=== PATIENT | female | born 1955 | race African-American/Black ===

== ENCOUNTER 2019-08-28 22:57 | Inpatient (IN) ==
[2019-08-28 23:30] LABS: Albumin Level 3.4 gm/dl (3.4-5.0); BUN Creatinine Ratio 12.5 (10-20); Calcium 8.9 mg/dl (8.5-10.1); Creatinine Clr Calc Pharmacy 43.3 ml/min; Est GFR (African American) 67.5; Est GFR (Non-African American) 58.2; Potassium 3.5 mmol/L (3.5-5.1)
[2019-08-28 23:33] LABS: INR 1.1 (0.9-1.1); Partial Thromboplastin Time 26.5 Seconds (21.0-31.0)
[2019-08-28 23:35] LABS: Albumin Globulin Ratio 0.8 (0.9-2); Bilirubin,Total 0.9 mg/dl (0.2-1); Globulin 4.2 gm/dl (2.5-4.0); Total Protein 7.6 gm/dl (6.4-8.2); Troponin I 0.03 ng/ml (0-0.045)
[2019-08-28 23:49] LABS: Hematocrit (blood only) 30.6 % (37-47); Hemoglobin 10.4 g/dL (12.0-16.0); Mean Corpuscular Hemoglobin 29.7 pg (25-34); Mean Corpuscular Volume 87.4 fL (80-100); Mean Platelet Volume 9.8 fL (7.4-10.4); Platelet Count 59 K/uL (130-400); RDW Coefficient of Variation 16.8 % (11.5-14.5); RDW Standard Deviation 53.9 fL (36.4-46.3); White Blood Count 8.81 K/uL (4.8-10.8)
[2019-08-28 23:50] LABS: Basophils # (auto) 0.03 K/uL (0-0.2); Basophils % (auto) 0.3 %; Eosinophils # (auto) 0.22 K/uL (0-0.5); Eosinophils % (auto) 2.5 %; Immature Granulocytes # (auto) 0.03 K/uL (0.00-0.02); Immature Granulocytes % (auto) 0.3 %; Lymphocytes # (auto) 3.31 K/uL (1.2-3.4); Lymphocytes % (auto) 37.6 %; Monocytes # (auto) 0.62 K/uL (0.11-0.59); Neutrophils % (auto) 52.3 %; Platelet Estimate Decreased (Normal); Schistocytes 1+
--- NOTE | 2019-08-29 01:47 | History & Physical Report ---
Date of Service August 29, 2019 Assessment & Plan (1) Dysarthria: Ms. Mason is a 63 year old female with no significant past medical history who presents to [facility] due to an episode of dysarthria, left sided hand weakness and left sided facial droop. Dysarthria/Numbness of left hand/Facial droop -admit to telemetry -transient, lasting approximately 5 minutes. Symptoms resolved prior to presentation to ED and neurological examination is currently WNL -Concern for TIA -MRI head and MRA head and neck ordered, ECHO ordered -FLP and HbA1c ordered with AM labs -neurology consulted -will not start aspirin at this time due to thrombocytopenia Elevated troponin -trop 0.03 - patient w/out chest pain -EKG shows normal sinus rhythm with T wave inversions in lateral leads - no prior EKG to compare -will trend troponin q6h -ECHO as above Thrombocytopenia -platelets 59, no signs or symptoms of bleeding -pt states she has never been told she had low platelets before -no recent illnesses, no hx of liver disease, not on any medications -will order peripheral smear, B12 and folate to continue workup, ?ITP -heme/onc consult requested Anemia -Hgb 10.4, normal MCV -pt states she has always had a hx of anemia -iron studies, Vitamin B12 and folate ordered Code status: FULL DVT Prophylaxis: SCDs Disposition: admit to telemetry (2) Numbness of left hand: (3) Facial droop: (4) Thrombocytopenia: (5) Elevated troponin: History of Present Illness Chief Complaint: Dysarthria, left sided facial droop, left sided weakness Primary Care Provider: NO PCP Ms. Mason is a 63 year old female with no significant past medical history who presents to [facility] due to an episode of dysarthria, left sided hand weakness and left sided facial droop. She states she was taking her teeth out earlier this evening, and felt like the left side of her mouth was drooping. She called her daughter over to have a look and states that she felt her speech was slurred when she was speaking to her daughter. She also endorses left hand numbness, and states it felt like her left hand was stiff. She denies changes with vision, weakness in her left leg, trouble with gait, or difficulty understanding her daughter. She states this episode lasted for approximately 5 minutes, and then resolved spontaneously. She states this has never happened to her before. She has otherwise been well, no recent illnesses. No hx of stroke, TIA, MS. She does not yet have a PCP in [place]. PMHx: Has been told in the past that she was anemic PSHx: nil of note Medications: none Allergies: NKDA FHx: Grandfather w/stroke. SHx: Just moved to [place] from [place], as her daughter got a job teaching [place] at [employer]. Smokes marijuana, 2/day. No alcohol. Allergies Allergy/AdvReac Type Severity Reaction Status Date / Time No Known Drug Allergies Allergy Unknown Verified 08/28/19 23:32 Home Medications Home Medications Medication Instructions Recorded Confirmed Type No Known Home Medications 07/25/19 08/28/19 History Past Med/Surg History Surgical History History of surgery procedure on cervix-1983 Family History Other No family history of bleeding disorder Social History Preferred Language: [place] Beliefs That Will Affect Care: None Current Living Situation: Other Current Living Situation Comment: With Daughter current occupational status: retired Other Information That Helps Us Care for You: No Feels Safe at Home: Yes Safety Concerns: Feels Safe At This Time Smoking Status: Current every day smoker Tobacco Type: cigarettes ; Cigarettes Per Day: 4 ; Do You Dip or Chew Tobacco: No ; Second Hand Exposure: No ; Tobacco Cessation Education Requested by Patient: No Hx Alcohol Use: Yes Hx Substance Use: Yes substance use type: marijuana Last Used Substance: Unknown Review of Systems Constitutional: no fever, no chills and no fatigue Eyes: no diplopia, no spots in vision and no tunnel vision Respiratory: no cough and no dyspnea Cardiovascular: no chest pain, no palpitations, no lightheadedness, no syncope, no edema and no calf pain Gastrointestinal: no abdominal pain, no nausea, no vomiting and no change in bowel habits Genitourinary: no dysuria, no difficulty urinating and no urinary frequency Musculoskeletal: no back pain Neurologic: + loss of sensation and + abnormal speech; no gait abnormality, no falls, no dizziness, no syncope, no headache(s) and no confusion Physical Exam Constitutional: WD/WN, vitals as above + thin; no acute distress Eyes: PERRL, conjunctivae normal, anicteric sclerae ENMT: external ear and nose normal, oropharynx normal Respiratory: normal respiratory effort, lungs clear to auscultation Cardiovascular: RRR, no murmur, no edema Gastrointestinal (Abdomen): normal bowel sounds, soft, nontender, no hepatosplenomegaly Musculoskeletal: no cyanosis or clubbing, extremities motor strength 5/5 Skin: no rashes, warm and dry Neurologic: patellar DTR's 2+ bilat, sensation intact and PERRL, EOMI, accommodation nl, no face palsy, no dysarthria no focal motor deficits Cranial nerves 2-12 grossly intact Coordination intact Power 5/5 in UE and LE Psychiatric: A+Ox3, euthymic affect Results & Data Vital Signs (Past 12 Hours) Vital Signs Temp Pulse Resp BP Pulse Ox 08/29/19 01:06 63 15 121/75 100 08/29/19 01:00 68 18 100 08/29/19 00:30 60 18 99 08/29/19 00:00 68 16 117/64 99 08/28/19 23:30 65 22 115/74 99 08/28/19 23:05 37 C 69 12 123/79 100 08/28/19 23:04 70 24 100 08/28/19 23:01 66 16 123/79 100 Supervising Physician Co-Signing Physician Notes Patient was seen and examined by me personally. I reviewed the chart, the orders and discussed the case in detail with Dr. Shaina Rowan MD . I read this H&P and agree with its contents to entirety. Resident Activity Tracking Resident Involvement: Resident Care Provided Care Provided: Adult [facility] Medicine
[2019-08-29] MEDS ORDERED: ALUMINUM/MAGNESIUM SUSP 30 ML UDC PO PRN (02:54)
[2019-08-29] MEDS ORDERED: MAGNESIUM HYDROXIDE SUSP 30 ML UDC PO PRN (02:54)
[2019-08-29] MEDS ORDERED: ONDANSETRON INJ 2 MG/ML 2 ML VIAL IV PRN (02:54)
[2019-08-29] MEDS ORDERED: ACETAMINOPHEN 325 MG TAB PO PRN (02:54)
[2019-08-29] MEDS ORDERED: PHARMACIST DISCHARGE MED REC CONSULT PRN (02:54)
[2019-08-29] MEDS ORDERED: GADOBUTROL 65ML VIAL IV PRN (06:02)
--- NOTE | 2019-08-29 06:19 | Emergency Department Note ---
Entered by Teresa Flannery acting as a scribe for History of Present Illness General Chief complaint: Neuro Symptoms/Deficit Stated complaint: NEURO SX Source: patient and family (daughter) History of Present Illness Provider complaint: stroke-like symptoms Onset (ago): hour(s) 1 Location: left and right Pain Consistency: + now resolved Quality: + other (stroke-like symptoms) Associated symptoms: + other (Positive slurred speech; Positive left hand immobility; Negative head trauma; Negative visual impairment; Negative head trauma); no nausea/vomiting The patient, who is a 63 year old female with no significant medical history, presents to the Emergency Room with complaints of a stroke-like episode which occurred at 2004. The patient states that while she was getting ready to sleep her daughter observed that the left side of her mouth was drooping significantly. The patient's daughter states that while she was calling EMS the patient's speech slowed down and started to slur. The patient confirms that while she was taking her dentures out the she was unable to move her left hand properly. The patient reports that this lasted a couple of seconds and she did not lose any sensation in this hand. The patient denies experiencing numbness in her legs throughout the entire episode. The patient denies vomiting, head trauma and visual impairment. The patient states that she has not seen a PCP in a while. The patient expresses that she currently smokes a couple of cigarettes a day. The patient is an inconsistent alcohol user. The patient's daughter states that the patient had an MRI three weeks ago. Home Medications Home Medications Medication Instructions Recorded Confirmed Type No Known Home Medications 07/25/19 08/28/19 History Allergies Allergy/AdvReac Type Severity Reaction Status Date / Time No Known Drug Allergies Allergy Unknown Verified 08/28/19 23:32 Past Med/Surg History Surgical History History of surgery procedure on cervix-1983 Family History Other No family history of bleeding disorder Social History Preferred Language: Urdu Communication Ability: Effective Beliefs That Will Affect Care: None Current Living Situation: Other Current Living Situation Comment: With Daughter current occupational status: retired Other Information That Helps Us Care for You: No Feels Safe at Home: Yes Safety Concerns: Feels Safe At This Time Smoking Status: Current every day smoker Tobacco Type: cigarettes ; Cigarettes Per Day: 4 ; Do You Dip or Chew Tobacco: No ; Second Hand Exposure: No ; Tobacco Cessation Education Requested by Patient: No Hx Alcohol Use: Yes Hx Substance Use: Yes substance use type: marijuana Last Used Substance: Unknown Physical Exam Vital Signs Vital Signs - 24 hr 08/29/19 00:30 08/29/19 01:00 08/29/19 01:06 Temperature Temperature Source Pulse Rate - Lying Pulse Rate 60 68 63 Pulse Rate [Right] Pulse Rate from SpO2 Sensor 60 63 64 Respiratory Rate 18 18 15 Respiratory Effort / Characteristics Respiratory Depth Respiratory Pattern Blood Pressure - Lying Blood Pressure 121/75 Blood Pressure [Left Arm] Blood Pressure Mean 90 Blood Pressure Mean [Left Arm] Blood Pressure Position [Left Arm] Pulse Oximetry 99 100 100 Oxygen Delivery Method 08/29/19 01:30 08/29/19 01:31 08/29/19 02:00 Temperature Temperature Source Pulse Rate - Lying Pulse Rate 64 63 60 Pulse Rate [Right] Pulse Rate from SpO2 Sensor 67 63 Respiratory Rate 20 20 20 Respiratory Effort / Characteristics Respiratory Depth Respiratory Pattern Blood Pressure - Lying Blood Pressure 114/69 Blood Pressure [Left Arm] Blood Pressure Mean 84 Blood Pressure Mean [Left Arm] Blood Pressure Position [Left Arm] Pulse Oximetry 100 100 Oxygen Delivery Method 08/29/19 02:01 08/29/19 02:58 08/29/19 08:07 Temperature 37.2 C 37.2 C Temperature Source Oral Oral Pulse Rate - Lying Pulse Rate Pulse Rate [Right] Pulse Rate from SpO2 Sensor Respiratory Rate 19 18 18 Respiratory Effort / Characteristics Non-Labored Spontaneous Non-Labored Respiratory Depth Normal Normal Respiratory Pattern Regular Blood Pressure - Lying Blood Pressure 116/69 Blood Pressure [Left Arm] 110/60 121/74 Blood Pressure Mean 84 Blood Pressure Mean [Left Arm] 76 89 Blood Pressure Position [Left Arm] Sitting Pulse Oximetry 100 99 100 Oxygen Delivery Method Room Air Room Air 08/29/19 08:11 08/29/19 11:47 08/29/19 14:47 Temperature 37.1 C Temperature Source Oral Pulse Rate - Lying 69 Pulse Rate Pulse Rate [Right] 64 65 Pulse Rate from SpO2 Sensor Respiratory Rate 19 Respiratory Effort / Characteristics Respiratory Depth Respiratory Pattern Blood Pressure - Lying 116/78 Blood Pressure Blood Pressure [Left Arm] 122/78 Blood Pressure Mean Blood Pressure Mean [Left Arm] 92 Blood Pressure Position [Left Arm] Sitting Pulse Oximetry 100 100 Oxygen Delivery Method Room Air 08/29/19 15:24 08/29/19 16:00 Temperature 37.3 C Temperature Source Oral Pulse Rate - Lying Pulse Rate 68 Pulse Rate [Right] 67 Pulse Rate from SpO2 Sensor Respiratory Rate 16 Respiratory Effort / Characteristics Respiratory Depth Respiratory Pattern Blood Pressure - Lying Blood Pressure Blood Pressure [Left Arm] 98/64 L Blood Pressure Mean Blood Pressure Mean [Left Arm] 75 Blood Pressure Position [Left Arm] Pulse Oximetry 100 Oxygen Delivery Method Room Air Vital signs reviewed. General: Well-appearing 63 year old female, in no significant distress. HEENT: No scleral icterus, PERRLA, neck supple. Atraumatic. Cardiovascular: Regular rate and rhythm, no extra sounds. Pulmonary: Clear to auscultation bilaterally, normal work of breathing. Abdomen: Soft, nontender, nondistended, positive bowel sounds. Musculoskeletal: Atraumatic, no peripheral edema. Neurologic: Patient awake alert and oriented x 3, full strength in all 4 extremities. Cranial nerves 2 through 12 grossly intact. Finger to nose intact. Negative pronator drift. Skin: Warm, dry, no rash Course 2304: Past medical records reviewed. The patient was evaluated in room B10. A complete history and physical exam was performed. 0103: I reviewed the patient's case with Dr. Lyons, [facility] Hospitalist. He will evaluate the patient for further management. Consultations Consultation #1: I reviewed the patient's case with Dr. Lyons, [facility] Hospitalist. He will evaluate the patient for further management. Time: 01:03 Administered Medications Gadobutrol (Gadavist 65ml) 4.8 ml IV ONCE PRN PRN Reason: Interaction Checking Stop: 09/02/19 06:01 Last Admin: 08/29/19 05:52 Dose: 4.8 ml Documented by: [id number] Sodium Chloride (Nss 1000ml) 1,000 mls @ 80 mls/hr IV .[id number] KATHRINE Stop: 09/28/19 18:29 Last Admin: 08/29/19 18:53 Dose: 80 mls/hr Documented by: [id number] Medical Decision Making Differential Diagnosis Differential Diagnosis includes but is not limited to ischemic Stroke, hemorrhagic stroke, bells palsy, mass, neoplasm, migraine headache, seizure, subarachnoid hemorrhage, TIA, and transient global amnesia. Medical Records Attestation: I reviewed the patient's medical records. Home Medications Current Medication List: was personally reviewed by me Laboratory Data Attestation: I reviewed the patient's lab results. Result diagrams: 08/29/19 06:24 08/29/19 06:24 Lab Results 08/28/19 08/28/19 08/28/19 Range/Units 23:05 23:05 23:05 WBC 8.81 (4.8-10.8) K/uL RBC 3.50 L (4.2-5.4) M/uL Hgb 10.4 L (12.0-16.0) g/dL Hct 30.6 L (37-47) % MCV 87.4 (80-100) fL MCH 29.7 (25-34) pg MCHC 34.0 (32-36) g/dL RDW Std Deviation 53.9 H (36.4-46.3) fL RDW Coeff of Stew 16.8 H (11.5-14.5) % Plt Count 59 L (130-400) K/uL MPV 9.8 (7.4-10.4) fL Immature Gran % (Auto) 0.3 % Neut % (Auto) 52.3 % Lymph % (Auto) 37.6 % [place] % (Auto) 7.0 % Eos % (Auto) 2.5 % Baso % (Auto) 0.3 % Immature Gran # (Auto) 0.03 H (0.00-0.02) K/uL Neut # (Auto) 4.60 (1.4-6.5) K/uL Lymph # (Auto) 3.31 (1.2-3.4) K/uL [place] # (Auto) 0.62 H (0.11-0.59) K/uL Eos # (Auto) 0.22 (0-0.5) K/uL Baso # (Auto) 0.03 (0-0.2) K/uL Platelet Estimate Decreased L (Normal) Schistocytes 1+ Peripher Smr Path Cons PT 11.0 (9.0-12.0) Seconds INR 1.1 (0.9-1.1) APTT 26.5 (21.0-31.0) Seconds PTT Ratio 1.0 Sodium 142 (136-145) mmol/L Potassium 3.5 (3.5-5.1) mmol/L Chloride 111 H (98-107) mmol/L Carbon Dioxide 25 (21-32) mmol/L Anion Gap 6.0 (3-11) BUN 13 (7-18) mg/dl Creatinine 1.03 (0.6-1.2) mg/dl Est Cr Clr Drug Dosing 43.3 ml/min Est GFR ( Amer) 67.5 Est GFR (Non-Af Amer) 58.2 BUN/Creatinine Ratio 12.5 (10-20) Glucose 95 (70-99) mg/dl Estimat Average Glucose mg/dl Hemoglobin A1c (4.5-5.6) % Hgb A1c Pathologist Com Calcium 8.9 (8.5-10.1) mg/dl Magnesium 2.0 (1.8-2.4) mg/dl Iron (35-150) mcg/dl TIBC (250-450) mcg/dl Transferrin (200-360) mg/dl Ferritin (8-388) ng/ml Total Bilirubin 0.9 (0.2-1) mg/dl AST 15 (15-37) U/L ALT 13 (12-78) U/L Alkaline Phosphatase 73 (45-117) U/L Troponin I 0.030 (0-0.045) ng/ml Total Protein 7.6 (6.4-8.2) gm/dl Albumin 3.4 (3.4-5.0) gm/dl Globulin 4.2 H (2.5-4.0) gm/dl Albumin/Globulin Ratio 0.8 L (0.9-2) Triglycerides (0-150) mg/dl Cholesterol (0-200) mg/dl LDL Cholesterol, Calc mg/dl VLDL Cholesterol, Calc mg/dl HDL Cholesterol mg/dl Cholesterol/HDL Ratio Vitamin B12 (211-911) pg/ml Folate (>5.38) ng/ml 08/29/19 08/29/19 08/29/19 Range/Units 06:24 06:24 06:24 WBC 7.30 (4.8-10.8) K/uL RBC 3.46 L (4.2-5.4) M/uL Hgb 10.5 L (12.0-16.0) g/dL Hct 30.2 L (37-47) % MCV 87.3 (80-100) fL MCH 30.3 (25-34) pg MCHC 34.8 (32-36) g/dL RDW Std Deviation 53.3 H (36.4-46.3) fL RDW Coeff of Stew 16.7 H (11.5-14.5) % Plt Count 60 L (130-400) K/uL MPV (7.4-10.4) fL Immature Gran % (Auto) 0.1 % Neut % (Auto) 62.2 % Lymph % (Auto) 25.3 % [place] % (Auto) 9.3 % Eos % (Auto) 2.7 % Baso % (Auto) 0.4 % Immature Gran # (Auto) 0.01 (0.00-0.02) K/uL Neut # (Auto) 4.53 (1.4-6.5) K/uL Lymph # (Auto) 1.85 (1.2-3.4) K/uL [place] # (Auto) 0.68 H (0.11-0.59) K/uL Eos # (Auto) 0.20 (0-0.5) K/uL Baso # (Auto) 0.03 (0-0.2) K/uL Platelet Estimate (Normal) Schistocytes Peripher Smr Path Cons PT (9.0-12.0) Seconds INR (0.9-1.1) APTT (21.0-31.0) Seconds PTT Ratio Sodium 140 (136-145) mmol/L Potassium 3.9 (3.5-5.1) mmol/L Chloride 110 H (98-107) mmol/L Carbon Dioxide 28 (21-32) mmol/L Anion Gap 2.0 L (3-11) BUN 11 (7-18) mg/dl Creatinine 0.89 (0.6-1.2) mg/dl Est Cr Clr Drug Dosing 50.6 ml/min Est GFR ( Amer) 80.5 Est GFR (Non-Af Amer) 69.5 BUN/Creatinine Ratio 12.7 (10-20) Glucose 91 (70-99) mg/dl Estimat Average Glucose 82 mg/dl Hemoglobin A1c 4.5 (4.5-5.6) % Hgb A1c Pathologist Com Calcium 8.9 (8.5-10.1) mg/dl Magnesium (1.8-2.4) mg/dl Iron 79 (35-150) mcg/dl TIBC 319 (250-450) mcg/dl Transferrin 257 (200-360) mg/dl Ferritin 246.6 (8-388) ng/ml Total Bilirubin (0.2-1) mg/dl AST (15-37) U/L ALT (12-78) U/L Alkaline Phosphatase (45-117) U/L Troponin I (0-0.045) ng/ml Total Protein (6.4-8.2) gm/dl Albumin (3.4-5.0) gm/dl Globulin (2.5-4.0) gm/dl Albumin/Globulin Ratio (0.9-2) Triglycerides 70 (0-150) mg/dl Cholesterol 223 H (0-200) mg/dl LDL Cholesterol, Calc 108 mg/dl VLDL Cholesterol, Calc 14 mg/dl HDL Cholesterol 101 mg/dl Cholesterol/HDL Ratio 2 Vitamin B12 (211-911) pg/ml Folate (>5.38) ng/ml 08/29/19 08/29/19 08/29/19 Range/Units 06:24 06:24 11:22 WBC (4.8-10.8) K/uL RBC (4.2-5.4) M/uL Hgb (12.0-16.0) g/dL Hct (37-47) % MCV (80-100) fL MCH (25-34) pg MCHC (32-36) g/dL RDW Std Deviation (36.4-46.3) fL RDW Coeff of Stew (11.5-14.5) % Plt Count (130-400) K/uL MPV (7.4-10.4) fL Immature Gran % (Auto) % Neut % (Auto) % Lymph % (Auto) % [place] % (Auto) % Eos % (Auto) % Baso % (Auto) % Immature Gran # (Auto) (0.00-0.02) K/uL Neut # (Auto) (1.4-6.5) K/uL Lymph # (Auto) (1.2-3.4) K/uL [place] # (Auto) (0.11-0.59) K/uL Eos # (Auto) (0-0.5) K/uL Baso # (Auto) (0-0.2) K/uL Platelet Estimate (Normal) Schistocytes Peripher Smr Path Cons PT (9.0-12.0) Seconds INR (0.9-1.1) APTT (21.0-31.0) Seconds PTT Ratio Sodium (136-145) mmol/L Potassium (3.5-5.1) mmol/L Chloride (98-107) mmol/L Carbon Dioxide (21-32) mmol/L Anion Gap (3-11) BUN (7-18) mg/dl Creatinine (0.6-1.2) mg/dl Est Cr Clr Drug Dosing ml/min Est GFR ( Amer) Est GFR (Non-Af Amer) BUN/Creatinine Ratio (10-20) Glucose (70-99) mg/dl Estimat Average Glucose mg/dl Hemoglobin A1c (4.5-5.6) % Hgb A1c Pathologist Com Calcium (8.5-10.1) mg/dl Magnesium (1.8-2.4) mg/dl Iron (35-150) mcg/dl TIBC (250-450) mcg/dl Transferrin (200-360) mg/dl Ferritin (8-388) ng/ml Total Bilirubin (0.2-1) mg/dl AST (15-37) U/L ALT (12-78) U/L Alkaline Phosphatase (45-117) U/L Troponin I 0.016 0.026 (0-0.045) ng/ml Total Protein (6.4-8.2) gm/dl Albumin (3.4-5.0) gm/dl Globulin (2.5-4.0) gm/dl Albumin/Globulin Ratio (0.9-2) Triglycerides (0-150) mg/dl Cholesterol (0-200) mg/dl LDL Cholesterol, Calc mg/dl VLDL Cholesterol, Calc mg/dl HDL Cholesterol mg/dl Cholesterol/HDL Ratio Vitamin B12 475 (211-911) pg/ml Folate 15.23 (>5.38) ng/ml Imaging Data Attestation: I personally reviewed and interpreted this imaging study as follows: My Impression: XRAY Chest IV Negative for focal long consolidation No failure Radiologist's Impression: Radiology results as stated below per my review and the radiologist's interpretation: CT Head No acute intracranial process. Radiologist: Beatriz Farris MD Study ready at 23:26 and initial results transmitted at 23:39 ECG Data Attestation: I personally reviewed and interpreted this ECG as follows: Indication: + other (CVA sx) Rate (beats per minute): 63 Rhythm: + normal sinus ECG Intervals/blocks: + Right Bundle branch block (RSR') ECG [place]: + Left axis deviation ECG ST segments: + Normal ST segments and + T-wave inversions ECG Findings: no PACs and no PVCs Blood Pressure Blood Pressure Findings: Normal blood pressure MDM Narrative This patient was evaluated and appeared to be in no significant distress. IV access was obtained and laboratory work was drawn. The patient was placed on the telemetry monitor found to be in a normal sinus rhythm. Head CT was performed and is negative for acute pathology. Patient's physical exam is fairly reassuring. Patient has a negative stroke scale. Patient's laboratory work reveals no significant abnormality. EKG reveals an RSR prime suggestive of right bundle branch block. Patient was reevaluated and feeling well. She had no recurrence of symptoms during her stay. She will be evaluated by the hospitalist service for further management of TIA. Impression & Plan TIA (transient ischemic attack) Discharge Plan Visit Data *Final* Discharge Date/Time: 08/29/19 02:33 Chief Complaint: Neuro Symptoms/Deficit Stated Complaint: NEURO SX ED Provider: Deysi Fitzgerald Discharge Problem: TIA (transient ischemic attack) Patient Disposition: Admitted As Inpatient Condition: Fair Discharge Instructions Interventions: ED Discharge Assessment Last Done: 08/29/19 02:33 The scribe's documentation has been prepared under my direction and personally reviewed by me in its entirety. I confirm that the note above accurately reflects all work, treatment, procedures, and medical decision making performed by me.
--- NOTE | 2019-08-29 06:36 | CT Scan Report ---
CT head/brain wo con CLINICAL HISTORY: 63 years-old Female with Stroke evaluation . Acute stroke like symptoms TECHNIQUE: Multiple axial CT images of the head were obtained without contrast. A dose lowering tech nique was utilized adhering to the principles of ALARA. CT DOSE: 537.48 mGy.cm COMPARISON: Brain MRI 08/29/2019. FINDINGS: No acute intracranial hemorrhage, midline shift, intracranial mass, hydrocephalus, territorial ischem ia or abnormal extra-axial collection. The calvarium is intact. The paranasal sinuses, mastoid air cells, and middle ear cavities are clear . IMPRESSION: No acute intracranial abnormality. The above report was generated using voice recognition software. It may contain grammatical, syntax o r spelling errors. Electronically signed by: Reilly Burrows M.D. 08/29/2019 6:35 AM
--- NOTE | 2019-08-29 06:43 | Magnetic Resonance Report ---
MR angio neck wo/w con HISTORY: Mental status change ?TIA, dysarthria, left sided weakness TECHNIQUE: Multiaxial CT angiography of the neck was performed IV contrast: None. All measurements w ere calculated based on NASCET criteria. Maximum intensity projection images were also obtained. A dose lowering technique was utilized adhering to the principles of ALARA. COMPARISON STUDY: None. FINDINGS: The aortic arch and proximal great vessels are widely patent. There is no significant sten osis, occlusion, or dissection identified within the bilateral common carotid, internal carotid, or v ertebral arteries. Study is compromised by considerable patient motion. It may just stenosis is not p resent. IMPRESSION: Limited study due to considerable patient motion. No evidence for high-grade stenosis. Carotid Dopple r ultrasound is recommended for confirmation. The above report was generated using voice recognition software. It may contain grammatical, syntax or spelling errors. Electronically signed by: Mo Garza M.D. 08/29/2019 6:42 AM
--- NOTE | 2019-08-29 06:47 | XRay Report ---
XR chest 1V portable CLINICAL HISTORY: CVA Sx status change COMPARISON STUDY: No previous studies for comparison. FINDINGS: The bones soft tissues and hemidiaphragms are normal. The cardiomediastinal silhouette is n ormal. The lungs are clear. The pulmonary vasculature is normal. IMPRESSION: Negative chest. The above report was generated using voice recognition software. It may contain grammatical, syntax or spelling errors. Electronically signed by: Mo Garza M.D. 08/29/2019 6:46 AM
--- NOTE | 2019-08-29 06:56 | Magnetic Resonance Report ---
MR brain wo con HISTORY: ?TIA, dysarthria, left sided weakness TECHNIQUE: Multiplanar multisequence MRI of the brain was performed without the use of contrast. COMPARISON STUDY: None. FINDINGS: There are no areas of restricted diffusion to suggest acute infarction. The midline structu res are intact. The paranasal sinuses are clear. The mastoid air cells are clear. The ventricles and sulci are within normal limits for age. There is no mass, hematoma, midline shift. The major vascular flow-voids at the skull base are well maintained. Several small foci of increased signal within the frontal lobes bilaterally. This is consistent with chronic small vessel change consistent with the pa tient's age. IMPRESSION: No acute process. Minimal chronic small vessel change. The above report was generated using voice recognition software. It may contain grammatical, syntax or spelling errors. Electronically signed by: Mo Garza M.D. 08/29/2019 6:55 AM
[2019-08-29 07:02] LABS: Hematocrit (blood only) 30.2 % (37-47); Hemoglobin 10.5 g/dL (12.0-16.0); Mean Corpuscular Hemoglobin 30.3 pg (25-34); Mean Corpuscular Hgb Conc 34.8 g/dL (32-36); Mean Corpuscular Volume 87.3 fL (80-100); RDW Coefficient of Variation 16.7 % (11.5-14.5); RDW Standard Deviation 53.3 fL (36.4-46.3); Red Blood Count 3.46 M/uL (4.2-5.4)
[2019-08-29 07:19] LABS: BUN Creatinine Ratio 12.7 (10-20); Calcium 8.9 mg/dl (8.5-10.1); Creatinine Clr Calc Pharmacy 50.6 ml/min; Est GFR (African American) 80.5; Est GFR (Non-African American) 69.5; Potassium 3.9 mmol/L (3.5-5.1)
--- NOTE | 2019-08-29 07:19 | Magnetic Resonance Report ---
MR angio head wo con CLINICAL HISTORY: 63 years-old Female presenting with left-sided facial droop, slurred speech, left h and weakness, concern for stroke. TECHNIQUE: MR angiography of the head was performed without the use of intravenous contrast using 3-D [id number] technique. 3-D volumetric and/or maximum intensity projection (MIP) images were subse quently reconstructed for review. IV contrast: None. COMPARISON: Contrast-enhanced MR brain from 08/01/2019 and noncontrast MR brain performed contemporan eously with this examination. FINDINGS: Localizer images: Unremarkable. Anterior circulation: Intracranial portions of the internal carotid arteries patent to the level of t he termini. Anterior cerebral arteries patent. Middle cerebral arteries patent. Anterior communicatin g artery patent. Posterior circulation: Codominant vertebral arteries. Intradural portions of the vertebral arteries p atent. Posterior inferior cerebellar arteries patent. Basilar artery patent. Anterior inferior cerebe llar arteries poorly visualized. Superior cerebellar arteries patent. Posterior cerebral arteries pat ent. Posterior communicating arteries hypoplastic or aplastic. IMPRESSION: 1. No significant stenosis, aneurysm, or focal vessel occlusion. Electronically signed by: Brandon Weems M.D. 08/29/2019 7:18 AM
[2019-08-29 07:24] LABS: Platelet Count 60 K/uL (130-400)
[2019-08-29 07:25] LABS: Ferritin 246.6 ng/ml (8-388)
[2019-08-29 07:26] LABS: Basophils # (auto) 0.03 K/uL (0-0.2); Basophils % (auto) 0.4 %; Eosinophils % (auto) 2.7 %; Immature Granulocytes # (auto) 0.01 K/uL (0.00-0.02); Immature Granulocytes % (auto) 0.1 %; Lymphocytes # (auto) 1.85 K/uL (1.2-3.4); Lymphocytes % (auto) 25.3 %; Monocytes # (auto) 0.68 K/uL (0.11-0.59); Monocytes % (auto) 9.3 %; Neutrophils # (auto) 4.53 K/uL (1.4-6.5); Neutrophils % (auto) 62.2 %
[2019-08-29 07:36] LABS: Estimated Average Glucose 82 mg/dl; Hemoglobin A1C 4.5 % (4.5-5.6)
[2019-08-29 08:29] LABS: Folate (Folic Acid) 15.23 ng/ml (>5.38)
--- NOTE | 2019-08-29 08:47 | Consultation Report ---
DATE OF CONSULTATION: 08/29/2019 REASON FOR CONSULTATION: Thrombocytopenia, etiology unclear. HISTORY OF PRESENT ILLNESS: Magdalena is a very pleasant 63-year-old -[place]ian female who was admitted to [facility] on 08/29/2019 with subacute onset facial drooping and left arm weakness. The patient now resides with her family and recently relocated from [place] and has not established primary medical care in our area as of yet. She reports last night while removing her dentures, she noticed some asymmetry with her smile. She had contacted her daughter who summoned 911 to bring her to the Emergency Room. Magdalena also reports some transient weakness of her left upper extremity. Her neurologic deficit has resolved, her smile is symmetrical, and strength regained. She underwent a battery of tests including MRI of the brain which revealed no acute process, minimal chronic small vessel change. The patient essentially has no significant medical problems, but again has not followed with a physician and has not undergone age appropriate cancer screening including mammogram or colonoscopy. She reports conductive hearing loss for which she has visited with ENT in early July. She also imparts occasional lightheadedness which has been again episodic. I have been asked to see her because her peripheral count reveals she suffers from a normocytic normochromic anemia and a mild thrombocytopenia. To her knowledge, she is unaware of any hematologic issues mentioned by prior physicians, but again does not appear that she has visited physicians routinely. She is accompanied by her daughter at bedside today. The only other observation that I noticed was her difficulty with word finding during this morning's interview. PAST MEDICAL HISTORY: Again negative. PAST SURGICAL HISTORY: Procedure on her cervix in 1983. MEDICATIONS: None. ALLERGIES: None. FAMILY HISTORY: States her father suffers from hypertension. Her mother is a cigarette smoker and suffers from COPD. SOCIAL HISTORY: The patient is retired, she is single. She is a pack a day smoker, she estimates 20 years. Alcohol, social on rare occasions, but she admits to chronic marijuana usage. REVIEW OF SYSTEMS: CONSTITUTIONAL: As per HPI, most notably for occasional lightheadedness. She denies bifrontal headaches. She is not anorexic or losing weight. No fevers, chills, or sweats. SKIN: No rashes or lesions. No history of dermatoses. HEENT: Negative for acute visual or sinus symptoms. No dysphagia or sore throat presently. LYMPHATICS: No history of lymphoproliferative disease. CARDIAC: No history of coronary artery disease, no angina or palpitations. PULMONARY: Negative for COPD. No shortness of breath, dyspnea, or orthopnea. No cough or hemoptysis. GASTROINTESTINAL: Negative for abdominal pain, nausea, vomiting, diarrhea or constipation, hematochezia or melena stools. GENITOURINARY: No hematuria, dysuria, urinary incontinence. PSYCHIATRIC: Negative for anxiety, depression, or any psychosis. ENDOCRINE: She is not diabetic. Denies thyroid disease. MUSCULOSKELETAL: No arthralgias or myalgias. No muscle weakness. NEUROLOGIC: She has no history of migraine headaches, seizure disorder, or prior strokes. HEMATOLOGIC: Positive for normocytic normochromic anemia and mild thrombocytopenia. PHYSICAL EXAMINATION: GENERAL: A very pleasant 63-year-old -Malaysian female in no acute distress. VITAL SIGNS: Temperature 37.2, pulse 60, respiratory rate 18, blood pressure 110/60. SKIN: Warm, dry, noncyanotic without petechiae, rash or ecchymosis. HEENT: Head is atraumatic, normocephalic. Eyes, PERRLA, EOMI. Sclerae nonicteric. No conjunctival injection. Nares are patent without rhinorrhea or discharge. Throat is clear. Tongue is midline. Mucous membranes are moist. Her dentition is in poor repair. NECK: Supple without JVD or thyromegaly. LYMPHATICS: No cervical or supraclavicular palpable nodes. HEART: Regular rate and rhythm. No clicks, rubs, murmurs, or gallops. LUNGS: Distant breath sounds. I could not appreciate any rales or rhonchi, however. ABDOMEN: Soft, nontender, nondistended, without palpable hepatosplenomegaly. EXTREMITIES: No calf tenderness or swelling. No clubbing, cyanosis, or edema. NEUROLOGICAL: She is awake, alert and oriented x3. Cranial nerves II-XII are intact. No gross motor or sensory deficits are noted. LABORATORY DATA: WBC count 7300, hemoglobin 10.5, platelet count 60,000. Her coags are normal. PT 11 seconds, PTT 26.5 seconds. Sodium 140, potassium 3.9, chloride 110, carbon dioxide 28, BUN 11, creatinine 0.89. Serum iron 79, TIBC 319, ferritin 246.6, albumin 3.4, B12 and folate are pending at this time. IMPRESSION: 1. Possible transient ischemic attack resulting in facial drooping and left upper extremity weakness. 2. Normocytic normochromic anemia. 3. Thrombocytopenia, etiology unclear. PLAN: I had the pleasure of meeting Magdalena and her daughter at bedside this morning. This is a very pleasant 63-year-old -Malaysian female with no significant past medical history, who presents with symptoms suggestive of a transient ischemic attack. Initial MRI of the brain shows no evidence of acute stroke. Her neurologic status has normalized. I have been asked to see her for anemia and thrombocytopenia. Unfortunately, there is no reference point and thus will be worked up from the ground upward. Agree with elemental evaluation. Thus far her iron studies seem to be intact. Await B12 and folate measurements. Her coagulation parameters are normal essentially ruling out disseminated intravascular coagulation as a cause for her thrombocytopenia. Perhaps she may have low-grade antibody. Myelodysplasia can also present in this fashion; however, bone marrow biopsy and aspiration would be required to confirm the diagnosis. This lady definitely needs to be established with a primary care physician and should have a head to toe thorough examination moving forward including age appropriate cancer screening. Her counts do not warrant immediate intervention. I would be happy to see Magdalena in followup as an outpatient. I have nothing further to add at this point. Thank you very much for allowing me to participate in her care. SENAIT
--- NOTE | 2019-08-29 16:24 | Billing Data ---
Coding Level of Care Code 19511 OBS Care - Level 2
--- NOTE | 2019-08-29 17:55 | Hospitalist Progress Note ---
Date of Service August 29, 2019 Assessment & Plan (1) TIA (transient ischemic attack): - Presented with dysarthria, numbness left hand and facial droop -- now resolved; likely related to TIA. - Head CT, Head/Neck MRA and Brain MRI all negative. - Echo showed preserved EF, no interatrial shunt noted, no wall motion abnormalities. -troponin negative x 3 although has anterior TWIs on ECG--> no chest pain at all - Lipid panel showed elevated cholesterol and LDL -- see below. Is a statin ca ndidate. - HgbA1C is 4.5; no further adjustments required. - Not a candidate for aspirin therapy due to thrombocytopenia (see below). - Neurology consult is pending. - PT/OT consult for stroke discharge planning. (2) HLD (hyperlipidemia): - Elevated LDL and Cholesterol level. - Consider statin therapy - neuro consult pending. (3) Elevated troponin: - Trop peaked at 0.030 but still within normal limits, then trended down. - EKG with NSR, T wave inversions in anterior leads, iRBBB - consider outpt stress test but asymptomatic here and not ACS (4) Thrombocytopenia: - Plt count 59K - no active bleeding noted. - Unclear etiology - B12, Folate, Iron studies WNL. - Peripheral smear is concerning for low grade hemolytic process; consider immature plt fraction to identify peripheral destruction process or lack of production in bone marrow. - Hematology consulted -- recommend outpatient follow up with possible BMBx. - Holding pharmacologic ppx. (5) Anemia: - Iron studies, B12 and Folate were WNL. - Peripheral smear indicated normocytic anemia with possible low grade hemolytic process -- will order LDH and haptoglobin levels (LFTs were WNL) - Concern for underlying bone marrow disorder -- see above. - No indication for transfusion support; monitor CBC daily. (6) DVT prophylaxis: - SCDs; holding pharmacologic ppx due to thrombocytopenia. Dispo: PCU tele for stroke work up; discharge pending neuro consult. Supervising Physician Co-Signing Physician Notes ERIKA Supervision Note: I did not personally see or examine the patient today, but I verified all ziegler points of ERIKA Girard's assessment and plan with the following exceptions/additions: None Subjective Pt. is doing well today -- did have minor episode of slurred speech this morning but other symptoms are completely resolved. Neuro consult is pending. Review of Systems Review of Systems: All systems reviewed & are unremarkable except as noted in HPI & below Constitutional: no fever, no chills, no fatigue, no weakness and no anorexia Respiratory: no cough, no dyspnea, no dyspnea on exertion and no wheezing Cardiovascular: no chest pain, no palpitations and no edema Gastrointestinal: no abdominal pain, no nausea, no vomiting and no constipation Genitourinary: no difficulty urinating Musculoskeletal: no back pain and no joint pain Integumentary: no non-healing lesions Neurologic: + abnormal speech; no gait abnormality, no localized weakness and no dizziness Physical Exam Physical Exam: General: Resting comfortably HEENT: NC/AT; PERRLA with EOMI; [place] conjunctiva, MMM. No erythema of posterior pharynx Neck: Supple and nontender Cardiac: RRR Lungs: CTA bilaterally Abdomen: Bowel normoactive X 4; Nontender to palpation Extremities: Warm. No edema present Neuro: No focal weakness noted on exam. Skin: No rash Results & Data Vital Signs (Past 12 Hours) Vital Signs Temp Pulse Pulse Resp BP Pulse Ox 08/29/19 16:00 68 08/29/19 15:24 37.3 C 67 16 98/64 L 100 08/29/19 14:47 100 08/29/19 11:47 37.1 C 65 19 122/78 100 08/29/19 08:11 64 08/29/19 08:07 37.2 C 18 121/74 100 Laboratory Results 08/29/19 08/29/19 08/29/19 Range/Units 11:22 06:24 06:24 WBC (4.8-10.8) K/uL RBC (4.2-5.4) M/uL Hgb (12.0-16.0) g/dL Hct (37-47) % MCV (80-100) fL MCH (25-34) pg MCHC (32-36) g/dL RDW Std Deviation (36.4-46.3) fL RDW Coeff of Stew (11.5-14.5) % Plt Count (130-400) K/uL MPV (7.4-10.4) fL Immature Gran % (Auto) % Neut % (Auto) % Lymph % (Auto) % Kay % (Auto) % Eos % (Auto) % Baso % (Auto) % Immature Gran # (Auto) (0.00-0.02) K/uL Neut # (Auto) (1.4-6.5) K/uL Lymph # (Auto) (1.2-3.4) K/uL Kay # (Auto) (0.11-0.59) K/uL Eos # (Auto) (0-0.5) K/uL Baso # (Auto) (0-0.2) K/uL Platelet Estimate (Normal) Schistocytes Peripher Smr Path Cons PT (9.0-12.0) Seconds INR (0.9-1.1) APTT (21.0-31.0) Seconds PTT Ratio Sodium (136-145) mmol/L Potassium (3.5-5.1) mmol/L Chloride (98-107) mmol/L Carbon Dioxide (21-32) mmol/L Anion Gap (3-11) BUN (7-18) mg/dl Creatinine (0.6-1.2) mg/dl Est Cr Clr Drug Dosing ml/min Est GFR ( Amer) Est GFR (Non-Af Amer) BUN/Creatinine Ratio (10-20) Glucose (70-99) mg/dl Estimat Average Glucose mg/dl Hemoglobin A1c (4.5-5.6) % Hgb A1c Pathologist Com Calcium (8.5-10.1) mg/dl Magnesium (1.8-2.4) mg/dl Iron (35-150) mcg/dl TIBC (250-450) mcg/dl Transferrin (200-360) mg/dl Ferritin (8-388) ng/ml Total Bilirubin (0.2-1) mg/dl AST (15-37) U/L ALT (12-78) U/L Alkaline Phosphatase (45-117) U/L Troponin I 0.026 0.016 (0-0.045) ng/ml Total Protein (6.4-8.2) gm/dl Albumin (3.4-5.0) gm/dl Globulin (2.5-4.0) gm/dl Albumin/Globulin Ratio (0.9-2) Triglycerides (0-150) mg/dl Cholesterol (0-200) mg/dl LDL Cholesterol, Calc mg/dl VLDL Cholesterol, Calc mg/dl HDL Cholesterol mg/dl Cholesterol/HDL Ratio Vitamin B12 475 (211-911) pg/ml Folate 15.23 (>5.38) ng/ml 08/29/19 08/29/19 08/29/19 Range/Units 06:24 06:24 06:24 WBC 7.30 (4.8-10.8) K/uL RBC 3.46 L (4.2-5.4) M/uL Hgb 10.5 L (12.0-16.0) g/dL Hct 30.2 L (37-47) % MCV 87.3 (80-100) fL MCH 30.3 (25-34) pg MCHC 34.8 (32-36) g/dL RDW Std Deviation 53.3 H (36.4-46.3) fL RDW Coeff of Stew 16.7 H (11.5-14.5) % Plt Count 60 L (130-400) K/uL MPV (7.4-10.4) fL Immature Gran % (Auto) 0.1 % Neut % (Auto) 62.2 % Lymph % (Auto) 25.3 % Kay % (Auto) 9.3 % Eos % (Auto) 2.7 % Baso % (Auto) 0.4 % Immature Gran # (Auto) 0.01 (0.00-0.02) K/uL Neut # (Auto) 4.53 (1.4-6.5) K/uL Lymph # (Auto) 1.85 (1.2-3.4) K/uL Kay # (Auto) 0.68 H (0.11-0.59) K/uL Eos # (Auto) 0.20 (0-0.5) K/uL Baso # (Auto) 0.03 (0-0.2) K/uL Platelet Estimate (Normal) Schistocytes Peripher Smr Path Cons PT (9.0-12.0) Seconds INR (0.9-1.1) APTT (21.0-31.0) Seconds PTT Ratio Sodium 140 (136-145) mmol/L Potassium 3.9 (3.5-5.1) mmol/L Chloride 110 H (98-107) mmol/L Carbon Dioxide 28 (21-32) mmol/L Anion Gap 2.0 L (3-11) BUN 11 (7-18) mg/dl Creatinine 0.89 (0.6-1.2) mg/dl Est Cr Clr Drug Dosing 50.6 ml/min Est GFR ( Amer) 80.5 Est GFR (Non-Af Amer) 69.5 BUN/Creatinine Ratio 12.7 (10-20) Glucose 91 (70-99) mg/dl Estimat Average Glucose 82 mg/dl Hemoglobin A1c 4.5 (4.5-5.6) % Hgb A1c Pathologist Com Calcium 8.9 (8.5-10.1) mg/dl Magnesium (1.8-2.4) mg/dl Iron 79 (35-150) mcg/dl TIBC 319 (250-450) mcg/dl Transferrin 257 (200-360) mg/dl Ferritin 246.6 (8-388) ng/ml Total Bilirubin (0.2-1) mg/dl AST (15-37) U/L ALT (12-78) U/L Alkaline Phosphatase (45-117) U/L Troponin I (0-0.045) ng/ml Total Protein (6.4-8.2) gm/dl Albumin (3.4-5.0) gm/dl Globulin (2.5-4.0) gm/dl Albumin/Globulin Ratio (0.9-2) Triglycerides 70 (0-150) mg/dl Cholesterol 223 H (0-200) mg/dl LDL Cholesterol, Calc 108 mg/dl VLDL Cholesterol, Calc 14 mg/dl HDL Cholesterol 101 mg/dl Cholesterol/HDL Ratio 2 Vitamin B12 (211-911) pg/ml Folate (>5.38) ng/ml 08/28/19 08/28/19 08/28/19 Range/Units 23:05 23:05 23:05 WBC 8.81 (4.8-10.8) K/uL RBC 3.50 L (4.2-5.4) M/uL Hgb 10.4 L (12.0-16.0) g/dL Hct 30.6 L (37-47) % MCV 87.4 (80-100) fL MCH 29.7 (25-34) pg MCHC 34.0 (32-36) g/dL RDW Std Deviation 53.9 H (36.4-46.3) fL RDW Coeff of Stew 16.8 H (11.5-14.5) % Plt Count 59 L (130-400) K/uL MPV 9.8 (7.4-10.4) fL Immature Gran % (Auto) 0.3 % Neut % (Auto) 52.3 % Lymph % (Auto) 37.6 % Kay % (Auto) 7.0 % Eos % (Auto) 2.5 % Baso % (Auto) 0.3 % Immature Gran # (Auto) 0.03 H (0.00-0.02) K/uL Neut # (Auto) 4.60 (1.4-6.5) K/uL Lymph # (Auto) 3.31 (1.2-3.4) K/uL Kay # (Auto) 0.62 H (0.11-0.59) K/uL Eos # (Auto) 0.22 (0-0.5) K/uL Baso # (Auto) 0.03 (0-0.2) K/uL Platelet Estimate Decreased L (Normal) Schistocytes 1+ Peripher Smr Path Cons PT 11.0 (9.0-12.0) Seconds INR 1.1 (0.9-1.1) APTT 26.5 (21.0-31.0) Seconds PTT Ratio 1.0 Sodium 142 (136-145) mmol/L Potassium 3.5 (3.5-5.1) mmol/L Chloride 111 H (98-107) mmol/L Carbon Dioxide 25 (21-32) mmol/L Anion Gap 6.0 (3-11) BUN 13 (7-18) mg/dl Creatinine 1.03 (0.6-1.2) mg/dl Est Cr Clr Drug Dosing 43.3 ml/min Est GFR ( Amer) 67.5 Est GFR (Non-Af Amer) 58.2 BUN/Creatinine Ratio 12.5 (10-20) Glucose 95 (70-99) mg/dl Estimat Average Glucose mg/dl Hemoglobin A1c (4.5-5.6) % Hgb A1c Pathologist Com Calcium 8.9 (8.5-10.1) mg/dl Magnesium 2.0 (1.8-2.4) mg/dl Iron (35-150) mcg/dl TIBC (250-450) mcg/dl Transferrin (200-360) mg/dl Ferritin (8-388) ng/ml Total Bilirubin 0.9 (0.2-1) mg/dl AST 15 (15-37) U/L ALT 13 (12-78) U/L Alkaline Phosphatase 73 (45-117) U/L Troponin I 0.030 (0-0.045) ng/ml Total Protein 7.6 (6.4-8.2) gm/dl Albumin 3.4 (3.4-5.0) gm/dl Globulin 4.2 H (2.5-4.0) gm/dl Albumin/Globulin Ratio 0.8 L (0.9-2) Triglycerides (0-150) mg/dl Cholesterol (0-200) mg/dl LDL Cholesterol, Calc mg/dl VLDL Cholesterol, Calc mg/dl HDL Cholesterol mg/dl Cholesterol/HDL Ratio Vitamin B12 (211-911) pg/ml Folate (>5.38) ng/ml PG Care Time/CCT Total # of Minutes Spent Total Time Spent with Patient: Total time spent is greater than 50% in coordination of care (as documented) at patient's floor/unit and/or counseling patient:
--- NOTE | 2019-08-29 18:52 | Neurology Progress Note ---
Date of Service August 29, 2019 Assessment & Plan (1) TIA (transient ischemic attack): Magdalena Mason is a 63 yo woman w/ no significant PMH who p/t [facility] after acute episode of dysarthria, left hand weakness/numbness and left facial droop that resolved after 5 minutes. Symptom localization: basis pontis if assuming clumsy hand-dysarthria syndrome Stroke mechanism: cardioembolic vs cryptogenic (? 2/2 sickle cell/HbS noted under A1c pathology) Stroke WorkUp: (imaging results per my read) - CT head: no hemorrhage or hypodensity - MRI brain: no acute infarct, mild SVID - MRA head/neck: motion degraded, however, no clear stenosis, LVO or aneurysm - TTE: EF 60-65%, mild-moderate TR, no PFO - Telemetry: pending - A1c: 4.5 - FLP: 108 - Troponin, TSH: negative, pending Stroke Management: - Acute treatment: n/a - Continuous cardiac monitoring, will consider Holter monitor as outpatient if telemetry here unrevealing - Vitals, Neurochecks, NIHSS per unit routine - BP parameters: SBP CAP 180, IV Labetalol/Hydralazine PRN - Complete ischemic stroke workup with TSH - Consult speech, PT, OT for supportive management - Will senior living sales counselor concerning stroke education, smoking cessation, healthy diet, physical activity, weight loss - Follow up with PCP for assistance with outpatient goals (BP <135/85, LDL <70, A1c <7) - Follow up in neurology clinic in 6-8 weeks Secondary Stroke Prevention: - Antiplatelet: ASA 81mg po daily when safe from a hematologic standpoint - Anticoagulation: Not indicated at this time - Statin: Atorvastatin 80mg daily HTN: - BP parameters, as above - EKG and troponin normal FEN/GI: - Diet: Cardiac HH diet - Monitor lytes and replete PRN Glucose Control: - Sliding scale insulin and accuchecks per primary team to avoid hyperglycemia Thank you for this interesting consult. Please call or text with any questions. (2) Anemia: (3) HLD (hyperlipidemia): Subjective Patient not seen on rounds today. This is a placeholder note with recommendations. Full consult note to follow tomorrow after patient examined in person. Results & Data Vital Signs (Past 12 Hours) Vital Signs Temp Pulse Pulse Resp BP Pulse Ox 08/29/19 18:20 105/67 08/29/19 16:00 68 08/29/19 15:24 37.3 C 67 16 98/64 L 100 08/29/19 14:47 100 08/29/19 11:47 37.1 C 65 19 122/78 100 08/29/19 08:11 64 08/29/19 08:07 37.2 C 18 121/74 100 PG Care Time/CCT Total # of Minutes Spent Total Time Spent with Patient: Total time spent is greater than 50% in coord ination of care (as documented) at patient's floor/unit and/or counseling patient:
[2019-08-29] MEDS: SODIUM CHLORIDE 0.9% 1000ML 1,000 ML IV SCH (18:53)
[2019-08-30 06:57] LABS: Hematocrit (blood only) 29.2 % (37-47); Hemoglobin 9.8 g/dL (12.0-16.0); Mean Corpuscular Hemoglobin 29.5 pg (25-34); Mean Corpuscular Hgb Conc 33.6 g/dL (32-36); RDW Coefficient of Variation 16.6 % (11.5-14.5); RDW Standard Deviation 52.9 fL (36.4-46.3); Red Blood Count 3.32 M/uL (4.2-5.4); White Blood Count 5.15 K/uL (4.8-10.8)
[2019-08-30 07:07] LABS: Mean Platelet Volume 9.5 fL (7.4-10.4); Platelet Count 66 K/uL (130-400)
[2019-08-30] MEDS: SODIUM CHLORIDE 0.9% 1000ML 1,000 ML IV SCH (07:40)
[2019-08-30] MEDS ORDERED: ATORVASTATIN 40 MG TAB PO SCH (09:00)
[2019-08-30 11:50] VITALS: TEMP 99
[2019-08-30] MEDS ORDERED: ASPIRIN 81 MG ECTAB PO SCH (12:45)
[2019-08-30 15:07] VITALS: PULSE 77; O2SAT 98
--- NOTE | 2019-08-30 15:14 | Discharge Summary ---
Date of Service August 30, 2019 Admission HPI Per Admitting Provider Ms. Mason is a 63 year old female with no significant past medical history who presents to [facility] due to an episode of dysarthria, left sided hand weakness and left sided facial droop. She states she was taking her teeth out earlier this evening, and felt like the left side of her mouth was drooping. She called her daughter over to have a look and states that she felt her speech was slurred when she was speaking to her daughter. She also endorses left hand numbness, and states it felt like her left hand was stiff. She denies changes with vision, weakness in her left leg, trouble with gait, or difficulty understanding her daughter. She states this episode lasted for approximately 5 minutes, and then resolved spontaneously. She states this has never happened to her before. She has otherwise been well, no recent illnesses. No hx of stroke, TIA, [place]. She does not yet have a PCP in [place]. Admission Exam Per Admitting Provider Constitutional: WD/WN, vitals as above + thin; no acute distress Eyes: PERRL, conjunctivae normal, anicteric sclerae ENMT: external ear and nose normal, oropharynx normal Respiratory: normal respiratory effort, lungs clear to auscultation Cardiovascular: RRR, no murmur, no edema Gastrointestinal (Abdomen): normal bowel sounds, soft, nontender, no hepatosplenomegaly Musculoskeletal: no cyanosis or clubbing, extremities motor strength 5/5 Skin: no rashes, warm and dry Neurologic: patellar DTR's 2+ bilat, sensation intact and PERRL, EOMI, accommodation nl, no face palsy, no dysarthria no focal motor deficits Cranial nerves 2-12 grossly intact Coordination intact Power 5/5 in UE and LE Psychiatric: A+Ox3, euthymic affect Principal Diagnosis TIA Discharge Exam General: Resting comfortably HEENT: NC/AT; PERRLA with EOMI; [place] conjunctiva, MMM. No erythema of posterior pharynx Neck: Supple and nontender Cardiac: RRR Lungs: CTA bilaterally Abdomen: Bowel normoactive X 4; Nontender to palpation Extremities: Warm. No edema present Neuro: No focal weakness noted. Skin: No rash Discharge Data Allergies Allergy/AdvReac Type Severity Reaction Status Date / Time No Known Drug Allergies Allergy Unknown Verified 08/28/19 23:32 Consultations 08/29/19 01:08 ED Decision to Admit Stat 08/29/19 02:54 Consult Case Management - Discharge Planning Routine Consult Hematology Routine Consult Neurology Routine Ordered Studies 08/28/19 23:12 CT head/brain wo con Urgent CXR 08/29/19 02:54 MR angio head wo con Routine MR angio neck wo/w con Routine MR brain wo con Routine Echocardiogram Hospital Course (1) TIA (transient ischemic attack): Presented with dysarthria, numbness left hand and facial droop -- resolved; likely related to TIA. Head CT, Head/Neck MRA and Brain MRI all negative. Echo showed preserved EF, no interatrial shunt noted. Lipid panel showed elevated cholesterol and LDL -- see below. Will start atorvastatin 80 mg daily. HgbA1C is 4.5; no further adjustments required. Start ASA 81 mg daily with close monitoring of plt counts and counseled on risk of bleeding. Neuro consulted, appreciate input. Follow up with Neuro in 6-8 weeks PT/OT - no therapy needs anticipated. (2) HLD (hyperlipidemia): Elevated LDL and Cholesterol level. Started Atorvastatin 80 mg daily. -f/u LFTs and lipid panel in 4-6 weeks (3) Elevated troponin: Trop peaked at 0.030 but still in normal limits, then trended down. EKG with NSR, T wave inversions in anterior leads, iRBBB, no old ECG to compare to No chest pain, no ACS here -recommend outpt f/u with possible stress test given h/o smoking and hyperlipidemia (4) Thrombocytopenia: Plt count 59K on admission - no active bleeding noted. up to mid 60s at time of discharge Unclear etiology - B12, Folate, Iron studies WNL. Peripheral smear is concerning for low grade hemolytic process; consider immature plt fraction to identify peripheral destruction process or lack of production in bone marrow. Hematology consulted -- will schedule outpt follow up. (5) Anemia: Iron studies, B12 and Folate were WNL. DOes have likely Sickle cell trait noted on Pathology review Peripheral smear indicated normocytic anemia with possible low grade hemolytic process -- LDH was elevated, Haptoglobin pending. LFTs WNL. Concern for underlying bone marrow disorder -- see above. No indication for transfusion support. (6) DVT prophylaxis: SCDs; held pharmacologic ppx due to thrombocytopenia. Discharged to home on 11/8/19. Total Time Total Time Spent Total Time Spent (In Minutes): >30 minutes Total Time Includes: Examination of the Patient, Discharge Planning, Medication Reconciliation, Communication With Other Providers and Other Discharge Plan Discharge Items Patient Disposition: Home - Self-Care Reason For Visit: left sided weakness and dysarthria Discharge Diagnosis: TIA, Thrombocytopenia Condition on Discharge: Fair Goals: You have been hospitalized for an acute medical problem. During your stay at [facility], we have made an effort to correct the problem that brought you to the hospital while keeping you as comfortable as possible. Medications were used to bring your condition under control and your discharge instructions will include directions for any medications you should take after leaving the hospital. Please make sure you see your Primary Care Provider as part of your follow up plan. Activity: As commented below Bathing: No limitations Exercise/Sports: Wait until after follow-up appointment Non-emergency contact: Primary Care Provider, Neurologist and Oncologist Call non-emergency contact if: you have any medication questions, your symptoms worsen and you have a fever Follow-up/Referrals: Jose Handley III, CRNP [Primary Care Provider] - 09/04/19 8:45 am (Please, follow up at [facility] with Jose JUNIOR on MondaySeptember 04 at 8:45 am. He will be your new primary care provider. *The office is located at [address] [place] [address] in [place], near the [employer] store. If you need to change this appointment, call the office at [phone].) Zachary Mann DO [Physician] - (Please, follow up with Dr. Zachary Mann or Dr. Tedyd Balderas (hematologists) regarding treatment for anemia and thrombocytopenia. *A nurse from his office will contact you with the appointment information. The office is located in the rear of this hospital building. You will park BEHIND the hospital in [address] and enter via [facility] [address]. If you have any questions, call the office at [phone].) Siria Guadalupe MD [Physician] - 10/01/19 2:15 pm (Please, follow up at [facility] with Dr. Guadalupe on MondayOctober 01 at 2:15 pm. *The office is located at [address] [facility] in [place]. If you need to change this appointment, call the office at [phone].) Diet: Heart Healthy Addtl Attending Provider Instructions: 1. TIA (transient ischemic attack) * Presenting symptoms were likely related to a TIA. * Aspirin 81 mg daily and Atorvastatin 80 mg daily has been started. * You will need to follow up with neurology -- appointment is scheduled on 10/01/19. 2. Thrombocytopenia/Anemia * You have a low platelet count & anemia -- exact etiology is unknown. * You will need to establish care with a primary care provider for full evaluation. * A script was provided for lab work -- labs will need to be collected on MondaySeptember 02; results will be faxed to PCP, neurologist and rn long term care. * It is also recommended to follow up with Dr. Mann from hematology/oncology for evaluation. * Please avoid activities that will increase risk of bleeding in setting of low platelet counts such as activity where you could fall and hit your head or trauma. 3. Cardiac work up * We recommend a cardiac work up based on EKG findings. * A follow up appointment will be scheduled with cardiology. 4. Please follow up with Jose Handley as scheduled on 09/04/19. 5. An appointment will be scheduled with Dr. Mann as an outpatient over the next 3-4 weeks. 6. Please follow up with Dr. Guadalupe from neurology as scheduled on 10/01/19. 7. An appointment will be scheduled with cardiology in 3-4 weeks. Additional stroke instructions: Activity Recommendations: See above Activation of Emergency Medical System: Call 911, immediately, if you experience any of the following: Warning Signs and Symptoms of Stroke: * Sudden numbness or weakness of the face, arm or leg, especially on one side of the body * Sudden confusion, trouble speaking or understanding * Sudden trouble seeing in one or both eyes * Sudden trouble walking, dizziness, loss of balance or coordination * Sudden severe headache with no cause Do not delay calling 911 if you experience any warning signs or symptoms of a stroke. Delay in seeking medical attention may affect what treatments can be given to you. Risk Factors for Stroke: You can reduce your chances of stroke by working with your medical provider to adopt a healthy lifestyle. Some specific ways to lower your chance of stroke are: * If you are a smoker, now is the time to stop smoking cigarettes * If you are diabetic, improve the control of your blood sugars * Avoid excessive amounts of alcohol * Control high blood pressure * Lose weight if you are overweight * Be sure to lead an active lifestyle * Eat a healthy diet low in salt, cholesterol and fat You should know about other risk factors for stroke that you are unable to control. These include: * Age 55 years or older * Male gender * Certain racial groups: , or / * Family History of Stroke, Mini stroke or Heart Attack * Sickle Cell Disease Follow Up: It is important for you to keep your follow up appointments with your medical provider. Who to Call and When: Medical Emergencies: Call 911 immediately if you experience any of the following warning signs and symptoms of Stroke: * Sudden numbness or weakness of the face, arm or leg, especially on one side of the body * Sudden confusion, trouble speaking or understanding * Sudden trouble seeing in one or both eyes * Sudden trouble walking, dizziness, loss of balance or coordination * Sudden severe headache with no cause Do not delay calling 911 if you experience any warning signs or symptoms of a stroke. Delay in seeking medical attention may affect what treatments can be given to you. Pending Studies at Discharge: No Stand-Alone Forms: [facility], Smoking Cessation Medications and DC Order Prescriptions: New atorvastatin 40 mg Tablet 80 mg PO QAM 30 Days Qty: 60 RF: 2 aspirin [Ecotrin Low Strength] 81 mg Tablet,Delayed Release (Dr/Ec) 81 mg PO QAM 1 Days Qty: 1 RF: 0 No Action No Known Home Medications RF: 0 Discharge Orders: Discharge Order (Routine); Ordered 08/30/19 Ordered By: Shama Umanzor Admission Data Admit Date/Time: 08/29/19 18:08 Attending Provider: Shama Umanzor Admit Provider: Shaina Rowan Primary Care Provider: Jose Handley III Other Providers: Marcellus Lyons ; Zachary Mann Christina R. Supervising Physician Co-Signing Physician Notes PA Supervision Note: I personally saw and examined the patient. I verified all ziegler points and agree with PA DelGrosso with the following exceptions and/or additions: DOing very well, no further focal neuro symptoms Denies CP, SOB, headache or lightheadedness, no nausea or abd pain. Is ambulating without diffiuclty VSS RRR no mgr CTAB no wcr ABd +BS soft NT ND Neuro -CN 2-12 intact, full strength throughout Ext no calf tenderness or edema in LEs 63 yo female with smoking, anemia, thrombocytopenia, hyperlipidemia, here with TIA -starting ASA, statin -f/u Neuro -f/u Heme -quit smoking-cessation counseling given Stable for dc
[2019-08-30] MEDS ORDERED: STROKE PATIENT DISCHARGE STA (16:26)
--- NOTE | 2019-08-30 16:42 | Neurology Consultation ---
Date of Consultation August 30, 2019 Assessment & Plan (1) TIA (transient ischemic attack): Magdalena Mason is a 63 yo woman w/ no significant PMH who p/t [facility] after acute episode of dysarthria, left hand weakness/numbness and left facial droop that resolved after 5 minutes. Symptom localization: basis pontis if assuming clumsy hand-dysarthria syndrome Stroke mechanism: cardioembolic vs cryptogenic (? 2/2 sickle cell/HbS noted under A1c pathology) Stroke WorkUp: (imaging results per my read) - CT head: no hemorrhage or hypodensity - MRI brain: no acute infarct, mild SVID - MRA head/neck: motion degraded, however, no clear stenosis, LVO or aneurysm - TTE: EF 60-65%, mild-moderate TR, no PFO - Telemetry: pending - A1c: 4.5 - FLP: 108 - Troponin, TSH: negative, WNL Stroke Management: - Acute treatment: n/a - Continuous cardiac monitoring, 30-day monitor as outpatient if telemetry here unrevealing - Vitals, Neurochecks, NIHSS per unit routine - BP parameters: SBP CAP 180, IV Labetalol/Hydralazine PRN - Complete ischemic stroke workup with TSH - Consult speech, PT, OT for supportive management - Will staff counselor concerning stroke education, smoking cessation, healthy diet, physical activity, weight loss - Follow up with PCP for assistance with outpatient goals (BP <135/85, LDL <70, A1c <7) - Follow up in neurology clinic in 6-8 weeks Secondary Stroke Prevention: - Antiplatelet: ASA 81mg po daily when safe from a hematologic standpoint (reportedly ok from heme standpoint as long as >50k) - Anticoagulation: Not indicated at this time - Statin: Atorvastatin 80mg daily Thank you for this interesting consult. Please call or text with any questions. History of Present Illness Attending Physician: Shama Umanzor MD Magdalena Mason is a 63-year-old woman with no significant past medical history who presented to [facility] after acute onset of left hand weakness, dysarthria and left facial droop. She was last seen well around 10 PM on 08/28/2019. She reports that she was taking out her dentures when she noticed that she had a facial droop. She called her daughter over, who reported that her mom had slurred speech. Magdalena also noted that she had a numb and weak sensation in her left hand. The entire episode lasted less than 5 minutes with full resolution of symptoms. On examination today, NIH stroke scale 0. She denies having any prior history of strokelike episodes in the past. Her grandmother had 2 strokes both in in her late 80s/early 90s. She does report a known family history of sickle cell trait but denies ever having any sickle cell pain crises or family history of strokes secondary to sickle cell. She herself has never experienced any neurological complaints in the past. Both CT head and MRI of the brain did not show any evidence of hemorrhage or acute infarct. She completed her stroke work-up as detailed below and is stable for discharge from a neurological standpoint. Labs this admission were notable for anemia as well as profound thrombocytopenia. Allergies Allergy/AdvReac Type Severity Reaction Status Date / Time No Known Drug Allergies Allergy Unknown Verified 08/28/19 23:32 Home Medications Home Medications Medication Instructions Recorded Confirmed Type No Known Home Medications 07/25/19 08/28/19 History aspirin [Ecotrin Low Strength] 81 mg PO QAM 1 Days #1 tab 08/30/19 Rx atorvastatin 80 mg PO QAM 30 Days #60 tab 08/30/19 Rx Patient History Surgical History History of surgery procedure on Family History Other No family history of bleeding disorder Social History Preferred Language: Korean Communication Ability: Effective Beliefs That Will Affect Care: None Current Living Situation: Other Current Living Situation Comment: With Daughter current occupational status: retired Other Information That Helps Us Care for You: No Feels Safe at Home: Yes Safety Concerns: Feels Safe At This Time Smoking Status: Current every day smoker Tobacco Type: cigarettes ; Cigarettes Per Day: 4 ; Do You Dip or Chew Tobacco: No ; Second Hand Exposure: No ; Tobacco Cessation Education Requested by Patient: No Hx Alcohol Use: Yes Hx Substance Use: Yes substance use type: marijuana Last Used Substance: Unknown Review of Systems Review of Systems: 14 point review of systems completed and negative except as in HPI. Physical Exam Physical Exam: General Exam: GEN: NAD, sitting down in examination bed. HEENT: No conjunctival injection, no rhinorrhea. CV: RRR on monitor, no significant edema. PULM: Nonlabored respirations on room air. Neuro Exam: MS: Awake and Alert. Oriented to person, place, and date. Speech fluent and appropriate without dysarthria or paraphasic errors. Language intact including naming, comprehension, repetition. Cognition and memory grossly intact. Attention intact. No neglect. CN: Visual jimenez full. No extinction to double simultaneous stimuli. Unable to visualize fundi. PERRLA OU. EOMI without nystagmus. Facial sensation intact to LT. Facial muscles full and symmetric. Hearing intact to finger rub bilaterally. Uvula midline with symmetric palatal elevation. SCMs and shoulder shrug normal. Tongue midline. MOTOR: Normal bulk and tone. No pronator drift. BUE strength 5/5 at deltoids, biceps, triceps, wrist flexors and extensors, and finger flexors bilaterally. BLE strength 5/5 at iliopsoas, hamstrings, quadriceps, tibialis anterior, and gastrocnemius bilaterally. REFLEXES: 2+ at biceps, triceps, brachioradialis, patella, and Achilles bilaterally. Flexor plantar responses bilaterally. SENSORY: Intact to LT/vibration/temperature throughout, no extinction to double simultaneous stimuli. COORDINATION: No dysmetria or ataxia on [id number] bilaterally. Normal Maryanne bilaterally. GAIT: Deferred due to physical status. NIH STROKE SCALE 1A. Level of Consciousness (0-3) = 0 1B. LOC Questions (0-2) = 0 1C. LOC Commands (0-2) = 0 2. Best Horizontal Gaze (0-2) = 0 3. Visual Jimenez (0-3) = 0 4. Facial Palsy (0-3) = 0 5. Motor Arm Right (0-4) = 0 Left (0-4) = 0 6. Motor Leg Right (0-4) = 0 Left (0-4) = 0 7. Limb Ataxia (0-2) = 0 8. Sensory (0-2) = 0 9. Best Language (0-3) = 0 10. Dysarthria (0-2) = 0 11. Extinction and Inattention (0-2) = 0 NIHSS TOTAL = 0 Results & Data Vital Signs (Past 12 Hours) Vital Signs Temp Pulse Resp BP BP Pulse Ox 08/30/19 15:05 37.2 C 77 18 102/69 98 08/30/19 11:49 37.2 C 59 L 18 107/69 100 08/30/19 07:10 36.7 C 56 L 19 125/76 100 PG Care Time/CCT Total # of Minutes Spent Total Time Spent with Patient: Total time spent is greater than 50% in coordination of care (as documented) at patient's floor/unit and/or counseling patient:
[2019-08-30 17:25] VITALS: BP 125/76
--- NOTE | 2019-08-30 20:58 | Pharmacy Report ---
Pharmacist Stroke Counseling - Date of Service August 30, 2019 - Scope: Pharmacy has been consulted to provide medication discharge counseling for this patient admitted with [transient ischemic attack] as per the Pharmacist Discharge Counseling for Stroke Patients Protocol. - Medications on Discharge: Home Medications Medication Instructions Recorded Confirmed No Known Home Medications 07/25/19 08/28/19 New Rx's Medication Instructions Recorded aspirin [Ecotrin Low Strength] 81 mg PO QAM 1 Days #1 tab 08/30/19 atorvastatin 80 mg PO QAM 30 Days #60 tab 08/30/19 - Action: The above medications, specifically ones for stroke treatment/prophylaxis, have been reviewed in detail with the patient and/or patient community engagement representative(s) prior to discharge. This includes indication, common adverse reactions, drug interactions, and medication administration. Medication counseling has been employed using the teach-back method to ensure understanding. - Outcome: The patient and/or patient community engagement representative(s) have demonstrated understanding of the medications. Please note, they are aware that the pharmacist will call them within 72 hours post-discharge to confirm that the appropriate medications are being taken and answer any further medication related questions the patient might have at that time. Contact information Individual to be contacted: patient Relationship to patient (if applicable): n/a Phone number: [phone] Best time to call: afternoon Additional comments: Patient with daughter during interview who also participated in asking questions. Starting both aspirin and atorvastatin on discharge for stroke prevention. No other new medications. Patient asking about times of day to take medications. Advised her to take medications same time each day but she could take them am/pm depending on her schedule. No other pertinent positives on interview. Thank you for allowing pharmacy to be involved in the care of this patient. Please call [phone] or [phone] with any additional questions
--- NOTE | 2019-09-03 15:57 | Pharmacy Report ---
Pharmacist Post D/C Phone Note - Phone Note: Date of phone call: September 03, 2019. Individual with whom pharmacist spoke to: RADHA Kimmie DE LEON The following questions were reviewed during the phone call with responses listed below each: Can you tell me the medications that you are currently taking as well as when and how you take each medication? -See Table Below - Patient said she is taking both baby ASA and Atorvastatin 80 mg in the morning together with her breakfast. When have you missed any doses of your medications? - Did not miss any. Taking both meds in the morning. What side effects are you having from your medications, specifically, the new medications you were started on? - No side effects at all. What questions do you have about your medications? - No questions today. What problems are you having obtaining your medications? - No problems. Able to fill the Atorvastatin 80 mg tablet- insurance covered this. When is your next appointment with your primary care doctor? - 09/04/19 Additional comments: - Patient was well knowledgeable about the meds she is on. She said she is not having any problems with either of her meds and she is diligent about taking them everyday. As per the Pharmacist Discharge Counseling for Stroke Patients Protocol, this phone call has been completed within 96 hours of discharge. Thank you for allowing us to be involved in the care of this patient. - Home Medications: New Rx's Medication Instructions Recorded atorvastatin 80 mg PO QAM 30 Days #60 tab 08/30/19 atorvastatin 80 mg PO DAILY #30 tab 08/31/19
== END 2019-08-30 18:11 | disposition home or self-care (01) | DRG 69 ==
LOC: 2S 22:57 → ED 22:57 → SUATTDRO 08-29 01:59 → 2S 08-29 02:33